=== PATIENT | male | born 1960 | race Two or more races ===

== ENCOUNTER 2018-04-21 18:13 | Inpatient (IN) | payer OTHER ==
[~2018-04-21] VITALS: Ht 175.3 cm; Wt 93.0 kg
[~2018-04-21 18:13] MED LIST: LISI10TA5 PO
--- NOTE | 2018-04-21 18:13 | NUR ---
DIZZY SINCE THURSDAY, [facility]. HAD WINE LAST NIGHT. VSS ALVAR[place]O CUTE DISTRESS NOTED AT THIS TIME. PT IS ALERT AND ORIENTED X4 ABLE TO MAKE NEEDS KNOWN. WILL CONTINUE TO MONITOR FOR AN CHANGES DURING THE SHIFT.
--- NOTE | 2018-04-21 18:14 | NUR ---
ER MD CL[place]ON AT BEDSIDE
[2018-04-21] MEDS ORDERED: IV NS 0.9% 1,000 ML BAG IV ONE (19:00)
[2018-04-21 19:14] LABS: BASOPHILS # (AUTO) 0.1 /CMM (0.0-0.2); EOSINOPHILS % (AUTO) 0.8 % (0.0-6.0); HEMATOCRIT 57 % (39-51); LYMPHOCYTES # (AUTO) 1.4 /CMM (0.8-4.8); LYMPHOCYTES % (AUTO) 22.1 % (20.0-44.0); MEAN CORPUSCULAR HGB CONC 34 g/dl (31.0-36.0); MEAN CORPUSCULAR VOLUME 96 fL (80-96); MONOCYTES # (AUTO) 0.5 /CMM (0.1-1.30); MONOCYTES % (AUTO) 7.5 % (2.0-12.0); NEUTROPHILS # (AUTO) 4.2 /CMM (1.8-8.9); NEUTROPHILS % (AUTO) 67.6 % (43.0-81.0); PLATELET COUNT (AUTO) 236 /CMM (150-450); RDW COEFFICIENT OF VARIATION 14.1 (11.5-15.0); RED BLOOD CELL COUNT(AUTO) 5.94 MIL/uL (4.5-6.0); WHITE BLOOD COUNT (AUTO) 6.2 K/uL (4.3-11.0)
[2018-04-21 19:24] LABS: CALCIUM, SERUM 8.8 mg/dL (8.5-10.1); CARBON DIOXIDE 28 mmol/L (21-32); CHLORIDE 105 mmol/L (98-107); CREATININE 1.9 mg/dL (0.6-1.3); GLUCOSE 103 mg/dL (74-106); POTASSIUM 3.2 mmol/L (3.5-5.1); SODIUM SERUM 138 mmol/L (136-145); UREA NITROGEN, BLOOD 25 mg/dL (7-18)
[2018-04-21 19:25] LABS: HEMOGLOBIN 19.1 g/dL (13.5-17.5)
[2018-04-21 19:29] LABS: INR 1.07 (0.87-1.13)
[2018-04-21 19:30] LABS: ALANINE AMINOTRANSFERASE 23 U/L (12-78); ALBUMIN 3.9 g/dL (3.4-5.0); ALKALINE PHOSPHATASE 92 U/L (46-116); ASPARTATE AMINOTRANSFERASE 27 U/L (15-37); BILIRUBIN,DIRECT 0.2 mg/dL (0.0-0.2); TOTAL PROTEIN, SERUM 7.2 g/dL (6.4-8.2)
[2018-04-21 19:32] LABS: TROPONIN I < 0.017 ng/mL (0.00-0.056)
[2018-04-21] MEDS ORDERED: IV NS 0.9% 250 ML IV ONE (19:46)
[2018-04-21] MEDS ORDERED: IOHEXOL-350 100 ML VIAL IV ONE (19:46)
--- NOTE | 2018-04-21 20:46 | NUR ---
CALLED NURSE SUP FOR TELE BED
[2018-04-21] MEDS ORDERED: IV NS 0.9% 1,000 ML IV PRN (20:58)
[2018-04-21] MEDS ORDERED: HYDROCODONE/APAP 5/325MG 1 EACH TABLET PO PRN (21:00)
[2018-04-21] MEDS ORDERED: ZOLPIDEM TARTRATE 5 MG TABLET PO PRN (21:00)
[2018-04-21] MEDS ORDERED: Z GUARD REMEDY 2 OZ OINT TP PRN (21:00)
[2018-04-21] MEDS ORDERED: MAGNESIUM HYDROXIDE 30 ML UDC PO PRN (21:00)
[2018-04-21] MEDS ORDERED: ACETAMINOPHEN 325 MG TABLET PO PRN (21:00)
[2018-04-21] MEDS ORDERED: MAG HYDROX/AL HYDROX/SIMETH 30 ML UDC PO PRN (21:00)
[2018-04-21] MEDS ORDERED: ONDANSETRON HCL/PF 4 MG/2 ML VIAL IVP PRN (21:00)
--- NOTE | 2018-04-21 21:28 | NUR ---
REPORT GIVEN TO JOSE REYES
[2018-04-21] MEDS ORDERED: POTASSIUM CHLORIDE 20 MEQ TAB.PRT.SR PO ONE (21:30)
[2018-04-21] MEDS ORDERED: MECLIZINE HCL 12.5 MG TABLET PO PRN (21:30)
[2018-04-21] MEDS ORDERED: hydrALAZINE HCL 25 MG TABLET PO PRN (21:30)
--- NOTE | 2018-04-21 21:36 | NUR ---
PT REFUSED POTASSIUM PILL. AWARE
[2018-04-21 21:40] VITALS: BP 154/100
--- NOTE | 2018-04-21 21:40 | NUR ---
TRANSPORTATION ASSISTANT ADMITTING NOTES RECEIVED PATIENT FROM ER VIA [facility], IN STABLE CONDITION. PATIENT IS ALERT AND ORIENTED X4. VERBALLY RESPONSIVE, ABLE TO MAKE NEEDS KNOWN. BREATHING EVEN AND UNLABORED. NO SOB NOTED - TOLERATING ROOM AIR. NO COMPLAINTS OF PAIN OR DISCOMFORT. NO FACIAL GRIMACING. IV ACCESS INTACT AND PATENT. EXPLAINED THE PROCESS OF ADMISSION. SKIN CHECK RENDERED - NO SKIN ISSUES NOTED. INVENTORY LIST INITIATED AND SIGNED. ORIENTED TO THE USE OF FACILITY AMENITIES. ALL OTHER NEEDS ATTENDED TO. SAFETY MEASURES IN PLACE. CALL LIGHT WITHIN REACH. WILL CONTINUE TO MONITOR.
[2018-04-21 21:50] VITALS: BP 154/100
[2018-04-22] VITALS: BP 134/93
[2018-04-22 04:00] VITALS: BP 140/99
[2018-04-22 04:45] VITALS: BP_SYST 140; BP_SYST 141; BP_SYST 143; BP_DIAS 103; BP_DIAS 94; BP_DIAS 99
[2018-04-22] MEDS ORDERED: AMLO10TA6 PO (05:41)
[2018-04-22] MEDS ORDERED: CHOL200026 PO (05:41)
[2018-04-22] MEDS ORDERED: CHLO25TA2 PO (05:41)
[2018-04-22] MEDS ORDERED: ATOR40TA PO (05:41)
[2018-04-22] MEDS ORDERED: ASPI-1169 PO (05:41)
[2018-04-22] MEDS ORDERED: METO50TA16 PO (05:41)
--- NOTE | 2018-04-22 06:06 | NUR ---
SPRINKLER FITTER HELPER NOTES PATIENT MENTIONED THE MEDICATIONS HE IS TAKING AT HOME AND ALSO SHOWED DOCUMENTS FROM [facility] THAT INCLUDES ALL THE MEDICATIONS HE TAKES. PER ER REPORT WHEN PATIENT WAS ADMITTED, HE WAS ONLY TAKING LISINOPRIL, HOWEVER PER THE LIST THE PATIENT SHOWED, THERE WERE 6 MORE OTHER MEDICATIONS. REST OF MEDICATIONS WERE ADDED TO THE MED RECON. PAGED DR. MEEHAN TO LOOK OVER THE LIST AND DECIDE WHETHER PATIENT WILL CONTINUE TO TAKE THEM OR NOT. AWAITING CALL BACK.
[2018-04-22 06:29] LABS: BASOPHILS # (AUTO) 0.1 /CMM (0.0-0.2); BASOPHILS % (AUTO) 1.3 % (0.0-2.0); EOSINOPHILS % (AUTO) 2.2 % (0.0-6.0); HEMATOCRIT 53 % (39-51); HEMOGLOBIN 17.4 g/dL (13.5-17.5); LYMPHOCYTES # (AUTO) 1.4 /CMM (0.8-4.8); LYMPHOCYTES % (AUTO) 24.1 % (20.0-44.0); MEAN CORPUSCULAR HGB CONC 33 g/dl (31.0-36.0); MEAN CORPUSCULAR VOLUME 97 fL (80-96); MONOCYTES # (AUTO) 0.5 /CMM (0.1-1.30); MONOCYTES % (AUTO) 9.4 % (2.0-12.0); NEUTROPHILS # (AUTO) 3.6 /CMM (1.8-8.9); PLATELET COUNT (AUTO) 225 /CMM (150-450); RDW COEFFICIENT OF VARIATION 15.2 (11.5-15.0); RED BLOOD CELL COUNT(AUTO) 5.44 MIL/uL (4.5-6.0); WHITE BLOOD COUNT (AUTO) 5.8 K/uL (4.3-11.0)
[2018-04-22 06:30] LABS: CALCIUM, SERUM 8.5 mg/dL (8.5-10.1); CREATININE 1.8 mg/dL (0.6-1.3); MAGNESIUM 2.1 mg/dL (1.8-2.4); PHOSPHORUS 4.5 mg/dL (2.5-4.9); POTASSIUM 3.3 mmol/L (3.5-5.1)
[2018-04-22 06:49] LABS: THYROID STIMULATING HORMONE 2.324 uIU/mL (0.358-3.74)
--- NOTE | 2018-04-22 06:53 | NUR ---
WIRE WRAPPER MACHINE OPERATOR CLOSING NOTES PATIENT AWAKE IN BED. ALERT AND ORIENTED X4. IN STABLE CONDITION. NO ACUTE CHANGES THROUGHOUT SHIFT. VERY EAGER TO GO HOME. BREATHING EVEN AND UNLABORED. NO SOB NOTED- TOLERATING ROOM AIR. IV ACCESS INTACT AND PATENT - INFUSING WELL. NO COMPLAINTS OF PAIN OR DISCOMFORT. ALL OTHER NEEDS ATTENDED TO. SAFETY MEASURES IN PLACE. CALL LIGHT WITHIN REACH. WILL ENDORSE TO ONCOMING NURSE FOR CONTINUITY OF CARE.
[2018-04-22 08:00] VITALS: BP 190/124
--- NOTE | 2018-04-22 08:18 | NUR ---
MS/RN CHRISTINA Patient left hospital against medical advice. Upon receiving patient, informed by patient that he wanted to go home. Explained that we needed to wait for medical doctors to make rounds and clear for discharge. Per patient, he was seen at [facility] yesterday complaining of vertigo, was told that the clinic was closing and that he should report to the nearest emergency room for further treatment. Since arriving and being admitted, no further symptoms were present. Explained the risks involved in leaving against medical advice including fall, injury to self, but still insisting on leaving. Heplock, tele monitor and name bands removed. DEONTEA paper signed, escorted to main lobby. All personal belongings returned to patient and signed for on belongings list.
[2018-04-22] MEDS ORDERED: LISINOPRIL (10MG) 10 MG TABLET PO SCH (09:00)
[2018-04-22] MEDS ORDERED: POTASSIUM CHLORIDE 10 MEQ TABLET.SA PO ONE (11:00)
== END 2018-04-22 08:10 | disposition left against medical advice (07) | DRG 149 ==
LOC: ER 18:15 → TELE 21:22 → MED 21:55 → TELE 22:26
PROVIDERS: ADMIT Internal Medicine; ATTEND Internal Medicine
DX: H81.49 Vertigo of central origin, unspecified ear (principal); I12.9 Hypertensive chronic kidney disease with stage 1 through stage 4 chronic kidney disease, or unspecified chronic kidney disease; N18.3 Chronic kidney disease, stage 3 (moderate); E66.9 Obesity, unspecified; E78.5 Hyperlipidemia, unspecified; Z68.30 Body mass index [BMI] 30.0-30.9, adult; F17.210 Nicotine dependence, cigarettes, uncomplicated; I10 Essential (primary) hypertension; I71.2 Thoracic aortic aneurysm, without rupture
CPT/HCPCS: 36415; 71045-TC; 80048-TC; 80076-TC; 83540-TC; 83735-TC; 84100-TC; 84443-TC; 84484-TC; 85025-TC; 85730-TC; 87081-TC; A4606; J7030; J7050; Q9967; Z7610